=== PATIENT | male | born 1945 | race Caucasian/White ===

== ENCOUNTER 2021-08-29 16:38 | Emergency (ER) | payer MEDICARE, SELFPAY ==
[2021-08-29] VITALS (7 sets, daily range): BP systolic 139–182; BP diastolic 81–115; PULSE 76–94; RESP 16–19; TEMP 36.9–38; O2SAT 95–97
--- NOTE | 2021-08-29 17:03 | ED_ITS ---
HPI - Male Genitourinary General: Chief complaint: Urogenital-Male Stated complaint: Unable to urinate or have bowel movement Time Seen by Provider: 08/29/21 17:03 History of Present Illness: HPI Narrative: Mr. Combs is a 75-year-old gentleman with significant past medical history of hypertension, diabetes who presents emergency department due to inability to void. Reports last bowel movement was yesterday morning. Starting this morning he was unable to urinate, last void was at about 530. He denies similar episodes in the past. He has associated moderate intensity suprapubic discomfort. He has the urge to urinate but is unable to same thing with bowel movement. He has tried increasing his liquid intake as well as magnesium citrate without significant relief. He does have a history of enlarged prostate however PSA has always been low to bor derline. No other changes in health, medicine systemic illness, specific exacerbating relieving factors identified. Review of Systems General: Reports: 10 or more systems reviewed and unremarkable except in HPI and below PFSH ED PFSH: Family History Grandmother Diabetes Sister Diabetes Denies family history of CAD (coronary artery disease) Clotting disorder Bleeding disorder Cancer Hypertension Stroke Social History Smoking and tobacco status: former smoker Quit status (tobacco): has quit using tobacco Year quit tobacco: 1990 Former quit date comment: smoked PPD x 30 yrs Second hand smoke exposure: No Alcohol intake: current Alcohol intake frequency: 0-2 Drinks per Day Alcohol type: wine Adopted: No Caregiver/support person: Yes Lives independently: Yes Household members: significant other Current occupational status: retired History of recent travel: No Current gender identity: Male Special claudia needs: No Physical Exam Narrative: EXAM NARRATIVE: GENERAL/CONSTITUTIONAL - well-appearing. No acute distress. Eyes - PERRL, no conjunctival injection ENMT - Atraumatic external nose and ears. Moist mucous membranes NECK - supple. trachea midline CARDIOVASCULAR - regular rate and rhythm. RESPIRATORY -clear to auscultation bilaterally. ABDOMEN/GI - mildly distended. TTP in suprapubic region. No peritonitis MSK - Extremities without obvious deformity or tenderness to palpation SKIN - Warm, Dry NEURO - alert and appropriately oriented. strength and sensation intact. Moves all extremities equally. PSYCH - Appropriate mood and affect Course ED course: - Patient was seen and evaluated by me at bedside - Patient placed on cardiac monitors, IV access obtained - Initial evaluation notable for no acute distress, abdominal exam as noted above - bladder scan >999, catheter placed with approx 1300 cc out - Labs notable for normal renal function - Imaging notable for no acute findings to explain symptoms, prostate mildly enlarged - Upon serial reexamination after treatment the patient was improved with resolution of abdominal pain - I discussed findings with the patient included lack of explanation for acute change. I recommended MRI to ensure no spinal cord compression, though presentation would be atypical without back pain. I explained that spinal cord compression is a neurosurgical emergency. Patient declined MRI at this time. Patient is competent to make healthcare decisions and can explain risks and benifitis. - Based on patient history, evaluation, labs, and imaging as interpreted the most likely cause of the patient's condition is unclear. - The results of ED evaluation were discussed with the patient including prescriptions and/or symptomatic cares (if applicable) including appropriate and responsible use, followup plan, and return precautions. The patient verbalized understanding and felt safe for discharge. - Patient discharged in satisfactory condition. Vital Signs: Vital signs: Vital Signs Temperature 98.5 F 08/29/21 20:21 Pulse Rate 76 08/29/21 20:21 Respiratory Rate 16 08/29/21 20:21 Blood Pressure 139/90 08/29/21 20:21 Pulse Oximetry 97 08/29/21 20:21 MDM - Male Medical Records: Attestation: I reviewed the patient's medical records. Lab Data: Attestation: I reviewed the patient's lab results. Labs: Lab Results 08/29/21 08/29/21 08/29/21 17:55 17:55 18:30 WBC 10.6 10^3/uL H 10 ^3/uL (4.0-10.0) RBC 4.82 10^6/uL 10^6 /uL (4.1-5.3) Hgb 15.4 g/dL g/dL (11.7-16.6) Hct 46.5 % % (42.0-52.0) MCV 96.5 fl H fl (80-94) MCH 32.0 pg pg (28.0-34.0) MCHC 33.1 g/dL g/dL (30.0-36.0) RDW 13.2 % % (12.1-15.1) Plt Count 195 10^3/cmm 10^3 /cmm (130-400) MPV 8.8 fL fL (7.4-10.4) Neut % (Auto) 80.5 % % Lymph % (Auto) 10.8 % % [place] % (Auto) 7.7 % % Eos % (Auto) 0.5 % % Baso % (Auto) 0.2 % % Neut # (Auto) 8.54 10^3/uL H 10 ^3/uL (1.8-7.7) Lymph # (Auto) 1.1 10^3/uL 10^3/ uL (0.8-4.8) [place] # (Auto) 0.8 10^3/uL 10^3/ uL (0.2-0.9) Eos # (Auto) 0.1 10^3/uL 10^3/ uL (0.0-0.8) Baso # (Auto) 0.0 10^3/uL 10^3/ uL (0.0-0.1) Nucleated RBC % (a uto) 0 % % Nucleated RBCs # 0.0 /100WBC /100W BC Sodium 134 mmol/L L mmol /L (136-145) Potassium 4.3 mmol/L mmol/L (3.5-5.1) Chloride 98 mmol/L mmol/L (98-107) Carbon Dioxide 23 mmol/L mmol/L (22-29) Anion Gap 17.3 (5-19) BUN 8 mg/dL mg/dL (8-23) Creatinine 0.6 mg/dL L mg/dL (0.7-1.2) GFR Calculation Not Reportable Glucose 94 mg/dL mg/dL (65-115) Calculated Osmolal ity 276 mOsm/kg L mOs m/kg (285-295) Calcium 8.9 mg/dL mg/dL (8.5-10.5) Total Bilirubin 0.9 mg/dL mg/dL (0.15-1.2) AST 28 U/L U/L (0-40) ALT 28 U/L U/L (0-41) Alkaline Phosphata se 67 IU/L IU/L (40-130) Total Protein 6.9 g/dL g/dL (6.6-8.7) Albumin 4.5 g/dL g/dL (3.5-5.2) Globulin 2.4 g/dL g/dL (1.3-4.6) Urine Color Yellow (Yellow) Urine Appearance Clear (CLEAR) Urine pH 5 (5-7) Ur Specific Gravit y 1.010 (1.005-1.030) Urine Protein Neg (Negative) Urine Glucose (UA) Norm (Normal) Urine Ketones 1+ H (Negative) Urine Blood Neg (Negative) Urine Nitrate Negative (Negative) Urine Bilirubin Neg (Negative) Urine Urobilinogen Norm mg/dL mg/dL (Negative) Ur Leukocyte Norah ase Negative (Negative) Discharge Plan Discharge Patient Disposition: Home Clinical Impression: Acute retention of urine, Constipation Condition: Stable Prescriptions: New Flomax 0.4 mg capsule 0.4 mg PO Q24H Qty: 30 RF: 0 Pyridium 100 mg tablet 100 mg PO Q8H PRN (Reason: pain) Qty: 6 RF: 0 Discharge Orders: Discharge ED (Routine); Ordered 08/29/21 Ordered By: Dennys Ovalles Discharge Diet: Usual diet Discharge Activity: Resume usual activity Patient Instructions: Constipation (ED), Urinary Retention in Men (ED), Morales Catheter Placement and Care (ED) Activity Restrictions/Additional Instructions: Thank you for visiting the emergency department. You were seen and evaluated for abdominal pain, urinary retention, and constipation. The exact cause of your symptoms is unclear. As discussed I recommend further evaluation with MRI, your declining this at this time. Please follow-up with urology. Please return to the emergency department for back pain, worsening symptoms, if you change your mind, or anything else that you are concerned about and feel needs emergency department evaluation. Please take a stool softener. 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
--- NOTE | 2021-08-29 17:16 | CTR_ITS ---
PROCEDURE INFORMATION: Exam: CT Abdomen And Pelvis With Contrast Exam date and time: 08/29/2021 5:16 PM Age: 75 years old Clinical indication: Abdominal pain; Localized; Prior surgery; Surgery date: 6+ months; Surgery type: Appy; Patient HX: C/O lower abd pain unable to urinate or bm; Additional info: Unable to urinate, unable to have bm, abdominal pain lower TECHNIQUE: Imaging protocol: Computed tomography of the abdomen and pelvis with contrast. Radiation optimization: All CT scans at this facility use at least one of these dose optimization techniques: automated exposure control; mA and/or kV adjustment per patient size (includes targeted exams where dose is matched to clinical indication); or iterative reconstruction. Contrast material: OMNI 300; Contrast volume: 95 ml; Contrast route: INTRAVENOUS (IV); COMPARISON: No relevant prior studies available. RADIATION DOSE METRICS: Total DLP (mGy-cm): 1745.82 FINDINGS: Liver: Normal. No mass. Gallbladder and bile ducts: Normal. No calcified stones. No ductal dilation. Pancreas: Normal. No ductal dilation. Spleen: Normal. No splenomegaly. Adrenal glands: Normal. No mass. Kidneys and ureters: Normal. No hydronephrosis. Stomach and bowel: Unremarkable. No obstruction. No mucosal thickening. Appendix: No evidence of appendicitis. Intraperitoneal space: Unremarkable. No free air. No significant fluid collection. Vasculature: Scattered atherosclerotic wall plaques of abdominal aorta. Negative for aneurysm. No vascular occlusion. No dissection. Lymph nodes: Unremarkable. No enlarged lymph nodes. Urinary bladder: Bladder is decompressed with a Morales catheter in place. Reproductive: Unremarkable as visualized. Bones/joints: The lumbar spine demonstrates marked discogenic and apophyseal joint degenerative changes at multiple levels. No acute fracture. Soft tissues: Unremarkable. Other findings: Mild severity prostate gland enlargement. CT/CT abdomen pelvis w con* [id number] IMPRESSION: 1. Negative for acute abdominopelvic pathology. 2. Prostatomegaly. Radiation Dose CTDIVOL = (mGy): DLP = 1745.82 (mGy-cm)
--- NOTE | 2021-08-29 17:30 | PC.NURSE ---
Bladder scanner greater that 999 ml.
[2021-08-29 18:05] LABS: Basophils % 0.2 %; Eosinophils # 0.1 10^3/uL (0.0-0.8); Eosinophils % 0.5 %; Hematocrit 46.5 % (42.0-52.0); Hemoglobin 15.4 g/dL (11.7-16.6); Lymphocytes # 1.1 10^3/uL (0.8-4.8); Lymphocytes % 10.8 %; Mean Corpuscular HGB Conc 33.1 g/dL (30.0-36.0); Mean Corpuscular Volume 96.5 fl (80-94); Mean Platelet Volume 8.8 fL (7.4-10.4); Monocytes # 0.8 10^3/uL (0.2-0.9); Monocytes % 7.7 %; Neutrophils # 8.54 10^3/uL (1.8-7.7); Neutrophils % 80.5 %; Nucleated Red Blood Cells % 0 %; Platelet Count 195 10^3/cmm (130-400); Red Blood Count 4.82 10^6/uL (4.1-5.3); Red Cell Distribution Width 13.2 % (12.1-15.1); White Blood Count 10.6 10^3/uL (4.0-10.0)
[2021-08-29] MEDS: morphine 4 mg/mL SDV 1 mL IVP (18:19)
[2021-08-29 18:23] LABS: Alanine Aminotransferase 28 U/L (0-41); Albumin Level 4.5 g/dL (3.5-5.2); Alkaline Phosphatase 67 IU/L (40-130); Anion Gap 17.3 (5-19); Aspartate Amino Transferase 28 U/L (0-40); Blood Urea Nitrogen 8 mg/dL (8-23); Calcium 8.9 mg/dL (8.5-10.5); Carbon Dioxide 23 mmol/L (22-29); Chloride 98 mmol/L (98-107); Globulin 2.4 g/dL (1.3-4.6); Glucose 94 mg/dL (65-115); Osmolality Calculated 276 mOsm/kg (285-295); Potassium 4.3 mmol/L (3.5-5.1); Sodium 134 mmol/L (136-145); Total Bilirubin 0.9 mg/dL (0.15-1.2); Total Protein 6.9 g/dL (6.6-8.7)
[2021-08-29 18:42] LABS: Add Urine Microscopic? NO; Charge for UA Resulting for Rev
[2021-08-29] MEDS: iohexol 300 mg/mL 100 mL Btl IV (18:43)
[2021-08-29 18:48] LABS: Bilirubin Urine Neg (Negative); Blood Urine Neg (Negative); Glucose Urine UA Norm (Normal); Ketones Urine 1+ (Negative); Leukocyte Esterase Urine Negative (Negative); Nitrate Urine Negative (Negative); Protein Urine Neg (Negative); Urine Appearance Clear (CLEAR); Urine Color Yellow (Yellow); Urobilinogen Urine Norm (Negative); pH Urine 5 (5-7)
--- NOTE | 2021-08-29 19:08 | PC.NURSE ---
Pt reports being pain free after the morphine. Gave report to Radha METZ
--- NOTE | 2021-09-03 10:16 | DCPLANNER ---
internet marketing manager had message to schedule a follow up appointment for patient with Dr. Jewell. internet marketing manager called the office of Dr. Jewell, spoke with Henry, gave clinic patients information. internet marketing manager was told that patients information would be printed and reviewed. Clinic will call patient with appointment information.
--- NOTE | 2021-09-10 15:39 | DCPLANNER ---
Patient had a follow up appointment scheduled for 09.08.[address] Jewell - appointment was cancelled.
== END 2021-08-29 20:34 | disposition home or self-care (01) ==
PROVIDERS: Emergency Provider Emergency Medicine
DX: K59.00 Constipation, unspecified (principal); R33.9 Retention of urine, unspecified; Z87.891 Personal history of nicotine dependence
CPT/HCPCS: 51701; 51798; 74177; 80053; 81003; 85025; 96374; 99283; J2270; Q9967

== ENCOUNTER → 2021-09-03 09:36 | Outpatient (BNVA) | payer MEDICARE, SELFPAY | PROVIDERS: Visit Provider Nurse Practitioner Family | DX: E11.9 Type 2 diabetes mellitus without complications (principal); E78.00 Pure hypercholesterolemia, unspecified; I10 Essential (primary) hypertension; N40.0 Benign prostatic hyperplasia without lower urinary tract symptoms; R33.8 Other retention of urine | CPT/HCPCS: 80053; 80061; 84153 ==

== ENCOUNTER → 2021-12-25 08:20 | Outpatient (BNVA) | payer MEDICARE, OTHER, SELFPAY | PROVIDERS: Visit Provider Nurse Practitioner Family | DX: E11.9 Type 2 diabetes mellitus without complications (principal); E78.00 Pure hypercholesterolemia, unspecified; I10 Essential (primary) hypertension | CPT/HCPCS: 80053; 80061; 83036 ==

== ENCOUNTER → 2022-03-30 08:32 | Outpatient (BNVA) | payer MEDICARE, OTHER, SELFPAY | PROVIDERS: Visit Provider Nurse Practitioner Family | DX: E11.9 Type 2 diabetes mellitus without complications (principal); E78.00 Pure hypercholesterolemia, unspecified; I10 Essential (primary) hypertension | CPT/HCPCS: 80053; 80061; 83036 ==

== ENCOUNTER → 2022-10-07 08:56 | Outpatient (BNVA) | payer MEDICARE, OTHER, SELFPAY | PROVIDERS: Visit Provider Nurse Practitioner Family | DX: Z12.5 Encounter for screening for malignant neoplasm of prostate (principal); R97.20 Elevated prostate specific antigen [PSA]; E11.9 Type 2 diabetes mellitus without complications; E78.00 Pure hypercholesterolemia, unspecified; N40.0 Benign prostatic hyperplasia without lower urinary tract symptoms; M54.9 Dorsalgia, unspecified; I10 Essential (primary) hypertension; G89.29 Other chronic pain | CPT/HCPCS: 80053; 80061; 83036; G0103 ==

== ENCOUNTER → 2023-03-30 10:07 | Outpatient (BNVA) | payer MEDICARE, OTHER, SELFPAY | PROVIDERS: Visit Provider Nurse Practitioner Family | DX: E11.9 Type 2 diabetes mellitus without complications (principal); N40.0 Benign prostatic hyperplasia without lower urinary tract symptoms; E78.00 Pure hypercholesterolemia, unspecified; I10 Essential (primary) hypertension | CPT/HCPCS: 80053; 80061; 83036 ==

== ENCOUNTER → 2023-09-24 09:23 | Outpatient (BNVA) | payer MEDICARE, OTHER, SELFPAY | PROVIDERS: PCP Nurse Practitioner Family; Visit Provider Nurse Practitioner Family | DX: Z12.5 Encounter for screening for malignant neoplasm of prostate (principal); I10 Essential (primary) hypertension; E11.9 Type 2 diabetes mellitus without complications; Z00.00 Encounter for general adult medical examination without abnormal findings; R97.20 Elevated prostate specific antigen [PSA]; E78.00 Pure hypercholesterolemia, unspecified; N40.0 Benign prostatic hyperplasia without lower urinary tract symptoms | CPT/HCPCS: 80053; 80061; 83036; G0103 ==

== ENCOUNTER → 2024-03-30 12:09 | Outpatient (BNVA) | payer MEDICARE, OTHER, SELFPAY | PROVIDERS: PCP Nurse Practitioner Family; Visit Provider Nurse Practitioner Family | DX: E11.9 Type 2 diabetes mellitus without complications (principal); N40.0 Benign prostatic hyperplasia without lower urinary tract symptoms; E78.00 Pure hypercholesterolemia, unspecified; I10 Essential (primary) hypertension | CPT/HCPCS: 80053; 80061; 83036; 85025 ==